=== PATIENT | male | born 1955 | race Caucasian/White ===

== ENCOUNTER → 2017-03-26 | Outpatient (CLI) | payer OTHER ==
[~2017-03-26] VITALS: Ht 185.4 cm; Wt 97.4 kg
[~2017-03-26] MED LIST: ACETAMINOPHEN325 M1 PO; ALLOPURINOL 30300 M1 PO; ALTACE5 M1 PO; ASPIRIN EC81 M1 PO; B-121000 MCG PO; CHLOROTHIAZIDE500 M2 PO; CYMBALTA30 MG PO; FISH OIL 1,0001 EAC5 PO; HYDROCODON-ACE1 EAC8 PO; INDAPAMIDE2.5 MG PO; MULTI VITAMIN1 EACH PO; NAPRELAN750 MG PO; PERCOCET PO; PRILOSEC 10MG C10 M1 PO; SAVELLA1 EACH PO; VITAMIN D1000 UNI1 PO; VYVANSE70 MG PO
--- NOTE | ~2017-03-26 | HPC ---
[facility] [address] [place] [address] PAIN MANAGEMENT CONSULTATION Name: JAIME DEL ROSARIO Room #: REG CLJuan Bubba#: [id number] Admission: 03/26/17 Attend Phys: Timbo Jenkins DO Discharge: Date of : 53 Report #: [id number] THIS REPORT FOR: //name// CC: Timbo Lara DATE OF SERVICE: 03/26/2017 CHIEF COMPLAINT: Low back pain, left lower extremity pain with paresthesias. HISTORY OF PRESENT ILLNESS: As you know, the patient is a very pleasant 61-year-old male who returns today in followup visit with low back pain, left lower extremity pain with paresthesias. The patient underwent EMG evaluation with Dr. Yaneth Hernandez at [facility] on 03/18/2017. That study revealed sensory peripheral neuropathy involving the lower extremities bilaterally and a chronic lumbar radiculopathy involving the left lower extremity. He was subsequently returned back to our clinic to discuss options for treatment. He returns today reporting pain score of around 5/10. States his pain is constant, aching, spasming, stabbing, numbness and tingling. Places current pain score at 5/10, daily average of 5/10, worst pain has been is 8/10. He indicates that pain is exacerbated with activities and movement, improves with medication, heat and cold compresses and epidural injections. He returns today in followup visit to discuss options for treatment to address both peripheral sensory neuropathy involving the lower extremities and lumbar radiculopathy involving left lower extremity. ALLERGIES: CONTRAST AGENT. CURRENT MEDICATIONS: Percocet 5/325 one tab every 6 hours p.r.n. for pain, Savella 50 mg p.o. at bedtime, Tylenol regular strength 325 mg once a day, omega-3 fish oil 1 tab per day, calcium carbonate 1 tab per day, cholecalciferol 1000 units per day, aspirin 81 mg per day, cyanocobalamin 1000 mcg per day, omeprazole 10 mg per day, vitamin A 70 mg per day, indapamide 2.5 mg once a day, chlorothiazide 500 mg once a day, allopurinol 300 mg once a day, naproxen 750 mg once a day, Cymbalta 30 mg once a day, ramipril 5 mg per day. SOCIAL HISTORY: The patient denies tobacco, alcohol, IV or illicit drug use. He is working, not receiving workmen's compensation, unaccompanied today. IMAGING: Unavailable. PHYSICAL EXAMINATION: VITAL SIGNS: Blood pressure 142/84, pulse is 111, respiratory rate 20, unlabored. The patient is 100% on room air, height 6 feet 1 inch tall, weight 214.8 pounds, BMI calculated 28.3. GENERAL: Well-developed, well-nourished, well-hydrated 61[place] [address] PAIN MANAGEMENT CONSULTATION Name: JAIME DEL ROSARIO BUCKLAND Room #: REG CLI M.R.#: [id number] Admission: 03/26/17 Attend Phys: Timbo Jenkins DO Discharge: Date of : 53 Report #: [id number] appearing his stated age, placing current pain score around 5/10. HEENT: Normocephalic, atraumatic. Pupils equal, round, reactive to light. Extraocular muscles are intact. Sclerae nonicteric without injection. NEUROLOGIC: Cranial nerves 2-12 grossly intact. Speech is fluent. The patient deemed a good historian. LUNGS: Clear, no wheeze, rhonchi or rales. CARDIOVASCULAR: Regular. No appreciable gallop or rub. ABDOMEN: Soft, nontender, nondistended. EXTREMITIES: Show no clubbing, no cyanosis, no edema. MUSCULOSKELETAL: Lower extremity strength appears equal and symmetrical 5/5, muscle bulk and tone equal and symmetrical. Seated straight leg raising negative. Supine straight leg raising positive left at approximately 45 degree angle. Ankle clonus negative. Babinski is negative. Lumbar provocation causes increase in axial back pain, no radiation of symptoms. Well-healed surgical scar in the lumbar region. Gait is mildly antalgic favoring left lower extremity over right. ASSESSMENT: 1. Symptomatic lumbar radiculopathy. 2. Displacement of lumbar intervertebral disk with radiculopathy. 3. Lumbosacral spondylosis with radiculopathy. 4. Chronic intractable pain. PLAN: 1. The patient has returned today in followup visit where we have reviewed in its entirety the EMG obtained from Dr. Yaneth Hernandez on 03/18/2017. The findings on the EMG do show bilateral peripheral neuropathy involving the lower extremities, but also a chronic lumbar radiculopathy involving the L5 nerve root. We have discussed with the patient the findings from the EMG and have correlated to his MRI. Unfortunately, the symptoms the patient has been experiencing has progressed. He is now placing pain score 5/10. We discussed with the patient options for treatment. These would include reinitiating physical therapy for which the patient has been involved in 2 different physical therapy sessions with some improvement in symptoms, but only transiently. We discussed medication management with addition of a neuropathic pain medication. He has failed neuropathic pain medications in the past secondary to somnolence, decrease in mental acuity and disorientation. He does not wish to initiate these medications again as he noted no good efficacy. We discussed epidural injections for which he does receive transient improvement in symptoms, but no long-term efficacy. We also discussed the spinal cord stimulator technology and surgical options. After reviewing risks and benefits of all proposed treatment options and given the fact that medications and epidurals have provided only transient improvement in symptoms, he has requested to move forward with a spinal cord stimulator trial. The patient has completed his psychiatric evaluation in preparation for possible [address] [address] PAIN MANAGEMENT CONSULTATION Name: JAIME DEL ROSARIO Room #: REG CLI Bubba#: [id number] Admission: 03/26/17 Attend Phys: Timbo Jenkins DO Discharge: Date of : 53 Report #: [id number] trial implantation. He saw Dr. Terese Paulino who reviewed the patient's case and determined he was a candidate for a spinal cord stimulator. There was no psychopathology that would preclude him from moving forward with such a device. We have received her paperwork today, which indicates that he would be an excellent candidate to move forward with spinal cord stimulator trial and possible implantation. 2. The patient was advised that third green party payer restrictions require that authorization be obtained before we can move forward with a spinal cord stimulator trial, begin the process immediately. Once we have this authorization, we will contact the patient directly and schedule a time that is usually convenient for himself and for our services to provide a spinal cord stimulator trial implant. Once we have achieved this authorization, we will contact the patient to begin the scheduling process. We are hopeful that we can move forward quickly as the patient has been experiencing increasing pain and we are hopeful this will provide improvement to reduce his 5/10 left lower extremity pain and bilateral neuropathies. 3. The patient was provided a prescription of Percocet 5/325s one tab every 6 hours p.r.n. for pain, I have given the patient #120. Advised the patient to take the medication only when pain is intolerable, not to rely on the medication prophylactically. 4. We will see the patient back in followup visit once we have achieved authorization to move forward with a spinal cord stimulator trial implantation to address chronic lumbar radicular pain involving the left lower extremity L5 distribution. <ELECTRONICALLY SIGNED> By: Timbo Jenkins DO 03/27/17 1216 1419 1939 Timbo Jenkins DO /nt
[2017-03-26 12:51] VITALS: BP 142/84
== END ==
LOC: PAIN 06:48
DX: M51.16 Intervertebral disc disorders with radiculopathy, lumbar region (principal); M47.27 Other spondylosis with radiculopathy, lumbosacral region; G89.29 Other chronic pain

== ENCOUNTER → 2017-05-08 | Outpatient (CLI) | payer OTHER ==
[~2017-05-08] VITALS: Ht 185.4 cm; Wt 98.0 kg
--- NOTE | ~2017-05-08 | HPC ---
[facility] [address] [place] [address] PAIN MANAGEMENT CONSULTATION Name: JAIME DEL RSOARIO Room #: REG CLJuan Norris.#: [id number] Admission: 05/08/17 Attend Phys: Timbo Jenkins DO Discharge: Date of : 53 Report #: [id number] THIS REPORT FOR: //name// CC: Timbo Lara DATE OF SERVICE: 05/08/2017 CHIEF COMPLAINT: Low back pain, bilateral lower extremity pain and paresthesias. HISTORY OF PRESENT ILLNESS: As you know, the patient is a very pleasant 61-year-old male who returns today in followup visit with chronic low back pain, bilateral lower extremity pain and bilateral foot pain secondary to peripheral neuropathy. The patient indicates pain around the level of 8-9/10 today. The patient indicates pain is exacerbated with movement and standing, improves with medications, heat and cold compresses and TENS unit. He returns today in followup visit having received precertification to undergo a spinal cord stimulator trial implantation to determine if this device would be effective at treating symptoms. He denies injury or trauma that may have led to symptom development. ALLERGIES: CONTRAST AGENT. CURRENT MEDICATIONS: Percocet 5/325 one tab every 6 hours p.r.n. for pain, Savella 50 mg p.o. at bedtime, Tylenol regular strength 325 mg p.r.n., omega-3 fish oil 1 tab per day, cholecalciferol 1000 units per day, aspirin 81 mg per day, multivitamin 1 tab per day, vitamin B12 1000 mcg per day, omeprazole 10 mg per day, Vyvanse 70 mg per day, indapamide 2.5 mg once a day, chlorothiazide 500 mg once a day, allopurinol 300 mg per day, naproxen 750 mg twice a day, duloxetine 30 mg per day and ramipril 5 mg per day. SOCIAL HISTORY: The patient denies tobacco, alcohol, IV or illicit drug use. He is working, not receiving workmen's compensation. He is accompanied by his who is present in room today. IMAGING DATA: No new imaging available. PHYSICAL EXAMINATION: VITAL SIGNS: Blood pressure 140/90, pulse is 112, respiratory rate 16 and unlabored. The patient is 100% on room air, height 6 feet 1 inch tall, weight 216 pounds and BMI calculated 28.5. GENERAL: Well-developed, well-nourished and well-hydrated 61-year-old male appearing stated age and he is placing current pain score 8-9/10. HEENT: Normocephalic and atraumatic. Pupils equal, round and reactive to light. [address] [address] PAIN MANAGEMENT CONSULTATION Name: JAIME DEL ROSARIO BROCKTON Room #: REG CLJuan M.R.#: [id number] Admission: 05/08/17 Attend Phys: Timbo Jenkins DO Discharge: Date of : 53 Report #: [id number] EXTREMITIES: Show no clubbing, no cyanosis and no edema. MUSCULOSKELETAL: Seated straight leg raising negative. Supine straight leg raising positive on the left. Ghassan's test negative. Modified Gaenslen's positive for axial low back pain. Ankle clonus negative. Babinski is negative. Gait is antalgic favoring left lower extremity over right. ASSESSMENT: 1. Symptomatic lumbar radiculopathy. 2. Displacement of lumbar intervertebral disk with radiculopathy. 3. Lumbosacral spondylosis with radiculopathy. 4. Lumbar degeneration. 5. Chronic intractable pain. PLAN: 1. The patient returns today in followup visit having received precertification to undergo spinal cord stimulator trial implantation. The patient has been advised of the risks and the benefits of this procedure. These risks include but not necessarily limited to bleeding, bruising, infection, worsening pain, no relief of pain, also risk of temporary or permanent muscle weakness, temporary or permanent nerve damage, possible paralysis and . The patient states understood and wished to proceed. 2. No medication changes were made at today's visit. The patient will continue current medical therapy as previously prescribed. We have requested the patient utilize his oxycodone only as necessary. If he does not need to take the medication, he is not to do so during the trial period. 3. We will see the patient back in followup visit in 1 week for explantation of device. At that time, we will discuss the efficacy of the device itself and determine if permanent implant would be warranted. PROCEDURE NOTE DESCRIPTION OF PROCEDURE: Two-lead spinal cord stimulator trial implantation with fluoroscopy. After obtaining written consent, a 22-gauge IV Hep-Lock was placed in the patient's right upper extremity. The patient was given IV prophylactic antibiotic infused over 30 minutes prior to procedure. The patient was then taken to the fluoroscopy suite, placed in prone position with 2 pillows under abdomen to decrease the lumbar lordosis. Cardiopulmonary monitoring was established and the patient's vital signs were monitored throughout the procedure. The patient's thoracolumbar spine was then prepped and draped in aseptic fashion using chlorhexidine and draped in a sterile fashion. The patient was given no IV sedation prior to the procedure. AP fluoroscopic imaging was obtained to identify and scar the midline positions of the T10 through L2 spinous processes. Skin was anesthetized with 1% [address] [address] PAIN MANAGEMENT CONSULTATION Name: JAIME DEL ROSARIO Room #: REG [facility]#: [id number] Admission: 05/08/17 Attend Phys: Timbo Jenkins DO Discharge: Date of : 53 Report #: [id number] lidocaine preservative free, total of 8 mL provided on the right and 8 mL provided on the left. This was done prior to the introduction of the 14-gauge 4-inch Tuohy needles. Skin entry site on the right was at approximately the level of the inferior portion of the L1 vertebral body. Needle was advanced using a paramedian approach to the right of midline approximately 45-degree angle. Loss of resistance air was utilized to verify placement within the epidural space. Epidural space entered at the T12-L1 interspace. Lateral fluoroscopic view was obtained to confirm position of the tip of the Tuohy needle within the epidural space. Aspiration noted to be negative for heme or cerebrospinal fluid. The patient did not complain of pain or paresthesias during needle placement. The spinal cord stimulating lead was then advanced through the Tuohy needle under direct visualization to the midline. Tip of the stimulating lead was then aligned with the inferior endplate of T8 located midline. The patient did not report any pain or paresthesias with placement of the lead. The position of the lead was confirmed both in AP and lateral fluoroscopic imaging. A second lead was then advanced on the left side. Needle was advanced using a paramedian approach on the left of the L1 vertebral body advancing towards the T12-L1 interspace. Epidural space was entered at the T12 interspace. Lateral fluoroscopic view was obtained to confirm the position of the Tuohy needle within the epidural space. Aspiration noted to be negative for heme or cerebrospinal fluid. The patient did not complain of pain or paresthesias with needle placement. Spinal cord stimulating lead was then advanced through the Tuohy needle under direct visualization within the midline. Tip of the stimulating lead was aligned with the superior endplate of T9 vertebral body located approximately within the midline. Final position of the zero electrode was noted to be in correct position. Imaging was obtained during the advancing process both in AP and lateral imaging to confirm position. The stylette was then removed from the two leads as well as the Tuohy needles. This was done under direct visualization to confirm the position of the leads was unchanged. The stimulating leads were then anchored to the patient's back with benzoin, Steri-Strips and OpSite bandaging. The patient tolerated procedure well, carefully escorted to the recovery room in stable condition. No apparent complications. The patient was advised if he begins to experience any concern of infection, increased bleeding, discharge at the insertion sites, fever, night sweats, chills of any kind, increasing neck or back pain, he is to contact the on-call pain physician. He was given a 24-hour phone number to contact that physician. If he is having difficulty with pattern of capture for his typical pain, he is to contact the Nevro device [address] [address] PAIN MANAGEMENT CONSULTATION Name: MIGUEL ÁNGELJAIME ARRIOLA Room #: REG MICHAEL Mac#: [id number] Admission: 05/08/17 Attend Phys: Timbo Jenkins DO Discharge: Date of : 53 Report #: [id number] customer service representative teacher and he was given phone numbers for that individual as well. We will see the patient back in followup visit in 1 week to determine efficacy. <ELECTRONICALLY SIGNED> By: Timbo Jenkins DO 05/15/17 1130 [id number] [id number] Timbo Jenkins DO /nt
[2017-05-08 07:09] VITALS: BP 140/90
== END | disposition home or self-care (01) ==
LOC: PAIN 05-07 12:55
DX: M51.16 Intervertebral disc disorders with radiculopathy, lumbar region (principal); M47.27 Other spondylosis with radiculopathy, lumbosacral region; G89.29 Other chronic pain; F17.210 Nicotine dependence, cigarettes, uncomplicated; Z91.041 Radiographic dye allergy status; Z79.899 Other long term (current) drug therapy; Z79.82 Long term (current) use of aspirin; Z79.891 Long term (current) use of opiate analgesic; Z98.890 Other specified postprocedural states

== ENCOUNTER → 2017-05-14 | Outpatient (CLI) | payer OTHER ==
--- NOTE | ~2017-05-14 | HPC ---
[facility] [address] [place] [address] PAIN MANAGEMENT CONSULTATION Name: JAIME DEL ROSARIO Room #: REG CLI MMichael.#: [id number] Admission: 05/14/17 Attend Phys: Timbo Jenkins DO Discharge: Date of : 53 Report #: [id number] THIS REPORT FOR: //name// CC: Timbo Lara DATE OF SERVICE: 05/14/2017 CHIEF COMPLAINT: Low back pain, bilateral lower extremity pain and paresthesias. HISTORY OF PRESENT ILLNESS: As you know, the patient is a very pleasant 61-year-old male who returns today in followup visit having undergone spinal cord stimulator trial implantation over the past week. The patient returns today with an 80% improvement in overall pain. He is now placing pain score no greater than 2/10, states his pain is exacerbated with arising in the morning, movement and standing; improves with medications, heat, cold compresses, TENS unit and the spinal cord stimulating trial. The patient feels very excited about moving forward with permanent implant as he has seen excellent improvement in his daily activities. ALLERGIES: IV CONTRAST AGENT. CURRENT MEDICATIONS: Percocet, Savella, Tylenol, omega 3 fish oil, cholecalciferol, aspirin, multivitamin, vitamin B12, omeprazole, Vyvanse, indapamide, chlorothiazide, allopurinol, naproxen, duloxetine, ramipril. SOCIAL HISTORY: The patient denies tobacco, alcohol, IV or illicit drug use. He is working, not receiving workmen's compensation, unaccompanied today. IMAGING: No new imaging available. PQRS: The patient does have a history of osteoarthritis, no rheumatoid arthritis. He is not a fall risk, has had no falls in the last 3 months. He is not on any blood thinners. He does have a history of hypertension, for which he is treated medically. He is on opioids. He has been on opioids for greater than 6 months. He does have an opioid contract with [facility] at our [facility] office. Risk assessment tool is low. Functional assessment 32/70, indicating moderate interference of daily activities secondary to pain. PHYSICAL EXAMINATION: VITAL SIGNS: Blood pressure 144/87, pulse is 98, respiratory rate 16, unlabored, the patient 99% on room air. GENERAL: Well-developed, well-nourished, well-hydrated, 61-year-old male. He appears his stated age. He is placing current pain score at 2/10. HEENT: Normocephalic, atraumatic. Pupils equal, round, reactive to light. [facility] [address] [place] [address] PAIN MANAGEMENT CONSULTATION Name: JAIME DEL ROSARIO Room #: REG [facility] Debbie.Jody.#: [id number] Admission: 05/14/17 Attend Phys: Timbo Jenkins DO Discharge: Date of : 53 Report #: [id number] Extraocular muscles are intact. EXTREMITIES: Show no clubbing, no cyanosis, no edema. MUSCULOSKELETAL: Seated straight leg raising negative. Supine straight leg raising positive on the left. Ghassan test negative. ASSESSMENT: 1. Symptomatic lumbar radiculopathy. 2. Displacement of a lumbar intervertebral disk with radiculopathy. 3. Lumbosacral spondylosis with radiculopathy. 4. Lumbar degeneration. 5. Chronic intractable pain. PLAN: 1. The patient returns today in followup visit and having successfully completed spinal cord stimulator trial implantation with the Nevro device. The patient has done very well with this device, noticing greater than 80% improvement in overall pain. The patient was able to return to the majority of his activities of daily living without significant pain interference. We did limit his high activity levels just due to potential of displacement of the device, but he was able to go about all other activities of daily living without any pain interference. He had some pain in the morning hours, lasting for about 4-5 minutes as he got up, this is likely osteoarthritic. He is excited to move forward with permanent implant. 2. The patient was advised that third libertarian payer restrictions require that authorization be obtained before he could move forward with a permanent device. We will begin the process of having the patient seen by neurosurgery for permanent implant of a Nevro device with paddle lead. 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 We recommend the paddle lead in this patient's case 3. The patient was provided new prescription of Percocet 5/325 one tab every 6 hours p.r.n. for pain, I have given this for pain control as we await the permanent implant. I have given the patient now for one month, #120, no refills. 4. We will see the patient back in followup visit on an as-needed basis. We wish him luck with the permanent spinal cord stimulator implantation. We will be transferring his information to neurosurgery of [facility] are recommended implanters of this device. We will have him seen as quickly as possible for the evaluation and for planning of the permanent implant with paddle lead. <ELECTRONICALLY SIGNED> By: Timbo Jenkins DO 05/15/17 1131 1256 1421 Timbo Jenkins DO /nt
[2017-05-14 08:12] VITALS: BP 144/87
== END ==
LOC: PAIN 06:42
DX: M51.16 Intervertebral disc disorders with radiculopathy, lumbar region (principal); M47.27 Other spondylosis with radiculopathy, lumbosacral region; G89.29 Other chronic pain; M79.605 Pain in left leg

== ENCOUNTER → 2020-05-31 | Outpatient (CLI) | payer OTHER, MEDICARE ==
[~2020-05-31] VITALS: Ht 182.9 cm; Wt 107.0 kg
[~2020-05-31] MED LIST changes: +ADDERALL XR 3030 MG PO; +AMLODIPINE BESY10 MG PO; +HYDROCHLOROTHIA25 M2 PO; +OMEPRAZOLE40 MG PO; +PROBIOTIC1 EAC7 PO; +RAMIPRIL10 MG PO
[2020-05-31 09:58] VITALS: BP 136/89
--- NOTE | 2020-05-31 10:17 | NUR ---
Pain Clinic Assessment: 1. History of Osteoarthritis: fingers neck knees History of Rheumatoid Arthritis: Not Applicable 2. Height: 6 ft. 0 in. 182.9 cm. Weight: 236.0 lb. oz. 107.049 kg. Patient's BMI: 32.0 3. Vital Signs: BP: 136/89 Pulse: 89 Resp: 16 Temp: 02 Sat: 100 ECG Mon: 4. Pain Intensity: 6 5. Fall Risk: Dizziness: N Needs help standing or walking: N Fallen in the last 3 months: N Fall risk comments: 6. Patient on Blood Thinner: None 7. History of Hypertension: Y 8. Opioid Therapy greater than 6 weeks: Y Opiate Contract Signed: 9. Risk Assessment Tool Provided: 2 low 10. Functional Assessment Tool: 11. Recreational Drug Use: Never Drug Type: Tobacco Use: Former Smoker Tobacco Type: Amount or Packs/day: How Many Years: Alcohol Use: Yes Frequency: Daily Quant: 1
--- NOTE | 2020-06-01 11:53 | HPC ---
[facility] [place] [address] PAIN MANAGEMENT CONSULTATION Name: JAIME DEL ROSARIO Room #: REG CLJuan Jr.#: [id number] Admission: 05/31/20 Attend Phys: Timbo Jenkins DO Discharge: Date of : 53 Report #: [id number] THIS REPORT FOR: cc: Ervin Lara MD,Ervin Jenkins,Timbo Dahl DO ~ DATE OF SERVICE: 05/31/2020 REFERRING PHYSICIAN: Ervin Lara MD CHIEF COMPLAINT: Bilateral foot pain. HISTORY OF PRESENT ILLNESS: As you know, the patient is a very pleasant 64-year-old male who has been followed by [facility] for an extended period of time, addressing lumbar radicular symptoms secondary to displacement of intervertebral disks at the L3-L4 and to a lesser degree at the L4-L5 level. He ultimately underwent spinal cord stimulator implantation, which provides good benefit from the back standpoint, but has not provided much in the way of improvement in his bilateral feet. He has sought treatment through physical therapy, medication management, and also has been seen by a local technical applications scientist, all of which have advised the patient they are not able to improve his symptoms. He continues to experience pain in the bilateral feet and some changes in skin color with positioning that is concerning for vascular issues. We have adjusted his spinal cord stimulator in the past to try to address his bilateral foot pain without much success. He returns today to discuss his concerns about vascular insufficiency of the lower extremities. The patient place his current pain score a 6/10. States the pain he is experiencing in the bilateral feet is constant, burning, aching, stinging, cramping, cold sensation and numbness with skin color changes. He states that nothing tends to exacerbate symptoms that he is aware of other than standing for a long period of time or sitting for long periods of time. Otherwise, no improvement in symptoms are noted with medications. He has been referred back to discuss bilateral foot pain. ALLERGIES: IV CONTRAST AGENT. CURRENT MEDICATIONS: Probiotic 1 tab per day, omeprazole 40 mg per day, Adderall XR 30 mg once a day, amlodipine 10 mg once a day, ramipril 10 mg once a day, hydrochlorothiazide 25 mg once a day, Tylenol Extra Strength 325 mg once a day, omega-3 fish oil 1 tab per day, cholecalciferol 1000 units once a day, aspirin 81 mg per day, multivitamin 1 tab per day, indapamide 2.5 mg once a day, allopurinol 300 mg once a day. SOCIAL HISTORY: The patient denies tobacco, alcohol, IV or illicit drug use. He is retired, unaccompanied today. IMAGING: [place] [address] PAIN MANAGEMENT CONSULTATION Name: JAIME DEL ROSARIO Room #: REG CLJuan Mac#: [id number] Admission: 05/31/20 Attend Phys: Timbo Jenkins DO Discharge: Date of : 53 Report #: [id number] PQRS: The patient has known arthritic changes of the cervical spine, bilateral shoulders, bilateral hands, bilateral hips; bilateral knees, status post total knee arthroplasty and bilateral ankles. No rheumatoid arthritis. He is placing his current pain score at 6/10. He is not a fall risk, has not had a fall in last 3 months. He is not on blood thinners, but is treated for hypertension. He is not on any chronic opioids, has a low opiate addiction potential. Pain impact is 36/70, moderate interference of daily activities secondary to pain. PHYSICAL EXAMINATION: VITAL SIGNS: Blood pressure 136/89, pulse 89, respiratory rate 16 and unlabored. The patient is 100% on room air, height 6 feet tall, weight 236 pounds, BMI calculated 32.0. GENERAL: Well-developed, well-nourished, well-hydrated 64-year-old male appearing stated age, pain is rated today at around 6/10. HEENT: Normocephalic, atraumatic. Pupils equal, round, and responsive. The patient is wearing a mask in compliance with COVID-19 regulations. EXTREMITIES: Show no clubbing, no cyanosis, and no appreciable edema. MUSCULOSKELETAL: Lower extremity strength appears symmetrical 5/5. He appears to be intact to light touch from L1 through L5 dermatomes. It does appear to be a loss of some sensation to tactile on the plantar surfaces of the feet. Pinprick appears slightly diminished as well. Seated straight leg raising negative. Supine straight leg raising provides no change in overall symptoms. Standing from a seated position does tend to exacerbate bilateral foot pain. There is noted skin color changes in the distal portion of the feet. ASSESSMENT: 1. Bilateral foot pain. 2. Chronic lumbar radiculopathy. PLAN: 1. The patient has returned to our clinic today having been evaluated by Podiatry, Orthopedic Surgery and his primary care physician, all of which have been unable to determine the source of the patient's bilateral foot pain. It was initially believed that his symptoms are related to lumbar radiculopathy, though epidural injections and spinal cord stimulator as well as surgical options have not improved his symptoms. He continues to utilize a spinal cord stimulator without much efficacy in regard to bilateral feet. I am concerned based on his physical exam today that he might be experiencing some vascular insufficiency, which may be contributing to his symptoms. I recommend further evaluation in this area. This has not been provided by any other physicians to date, but he does discuss findings that occur in the evening hours that are concerning for vascular changes and further evaluation I would recommend. We have also contacted the patient's device footwear sales representative to meet with the patient on an outpatient appointment to adjust his spinal cord stimulator to address specifically his bilateral feet with paresthesia-like sensation so that the [facility] [address] [place] [address] PAIN MANAGEMENT CONSULTATION Name: JAIME DEL ROSARIO Room #: REG CLI Bubba#: [id number] Admission: 05/31/20 Attend Phys: Timbo Jenkins DO Discharge: Date of : 53 Report #: [id number] patient can determine he is getting coverage over his bilateral feet and determine if the symptoms will improve. 2. We have taken the liberty of contacting the patient's device footwear sales representative at [employer] spinal cord stimul[employer] to make adjustments in the device. They are going to contact the patient directly and make an appointment. The patient will keep me apprised of his response to the adjustments in therapy. We are hopeful the patient will see good benefit with this treatment course. 3. I have sent the patient for MISSY evaluation. I do wish to have a vascular study completed to determine whether or not he has some form of vascular insufficiency, which is leading to bilateral foot pain. The patient will undergo the ankle-brachial index testing and we will be monitoring for those results. 4. We made no changes in the patient's medication management. At this time, we will continue current medical therapy as prior prescribed. 5. We will see the patient back in followup visit to review the MISSY testing and to determine whether or not the Nevro adjustments in the spinal cord stimulators have been beneficial. <ELECTRONICALLY SIGNED> By: Timbo Jenkins DO 06/01/20 1153 [id number] Timbo Jenkins DO /nt
== END ==
LOC: PAIN 06:51
PROVIDERS: ATTEND Anesthesiology Pain Medicine
DX: M79.672 Pain in left foot (principal); M79.671 Pain in right foot; G89.29 Other chronic pain; M54.16 Radiculopathy, lumbar region

== ENCOUNTER → 2020-06-14 | Outpatient (CLI) | payer OTHER, MEDICARE ==
[~2020-06-14] VITALS: Ht 182.9 cm; Wt 105.8 kg
[~2020-06-14] MED LIST changes: +ADVIL200 M1 PO; +NEURONTIN 300M300 M2 PO
[2020-06-14 09:38] VITALS: BP 131/84
--- NOTE | 2020-06-14 09:57 | NUR ---
Pain Clinic Assessment: 1. History of Osteoarthritis: fingers neck knees History of Rheumatoid Arthritis: Not Applicable 2. Height: 6 ft. 0 in. 182.9 cm. Weight: 233.2 lb. oz. 105.779 kg. Patient's BMI: 31.6 3. Vital Signs: BP: 131/84 Pulse: 103 Resp: 16 Temp: 02 Sat: 100 ECG Mon: 4. Pain Intensity: 7 5. Fall Risk: Dizziness: N Needs help standing or walking: N Fallen in the last 3 months: N Fall risk comments: 6. Patient on Blood Thinner: None 7. History of Hypertension: Y 8. Opioid Therapy greater than 6 weeks: Y Opiate Contract Signed: 9. Risk Assessment Tool Provided: 2 low 10. Functional Assessment Tool: 11. Recreational Drug Use: Never Drug Type: Tobacco Use: Former Smoker Tobacco Type: Amount or Packs/day: How Many Years: Alcohol Use: Yes Frequency: Special Occasions Quant: 1
--- NOTE | 2020-06-15 10:35 | HPC ---
[facility] [place] [address] PAIN MANAGEMENT CONSULTATION Name: JAIME DEL ROSARIO Room #: REG CLJuan Bubba#: [id number] Admission: 06/14/20 Attend Phys: Timbo Jenkins DO Discharge: Date of : 53 Report #: [id number] THIS REPORT FOR: cc: Ervin aLra MD, Matthew MD Johnson, James E. DO ~ DATE OF SERVICE: 06/14/2020 REFERRING PHYSICIAN: CHIEF COMPLAINT: Bilateral foot pain. HISTORY OF PRESENT ILLNESS: As you know, the patient is a pleasant 64-year-old male with longstanding history of bilateral foot paresthesias. The patient has been evaluated by pain management, undergoing treatment to address lumbar radiculopathy, which was believed to be potentially contributing to his bilateral foot pain. He underwent a spinal cord stimulator, but did not notice much in the way of improvement in symptoms. He was subsequently then referred on to Podiatry who evaluated the patient and determined his symptoms were not podiatric related. He recently underwent an evaluation with Doppler studies of the bilateral lower extremity as there was concern his symptoms may be related to peripheral vascular disease leading to peripheral neuropathy. This has been ruled out with the recent Doppler testing, which showed normal blood flow. This brings the patient back to our clinic to discuss treatment options for peripheral neuropathy of unknown origin. The patient is placing his pain anywhere up to 7/10. He denies injury or trauma that may have led to symptom development. ALLERGIES: IV CONTRAST AGENT. CURRENT MEDICATIONS: Probiotic, omeprazole, Adderall XR amlodipine, ramipril, hydrochlorothiazide, Tylenol Extra Strength, omega-3 fish oil, cholecalciferol, aspirin, multivitamins, indapamide, allopurinol. SOCIAL HISTORY: The patient denies tobacco, alcohol, IV or illicit drug use. He is retired, retired about a year ago; unaccompanied today. IMAGING: No new imaging available. PQRS: The patient has known arthritic changes of the cervical spine, bilateral shoulders, bilateral hands, bilateral hips, bilateral knees, status post total knee arthroplasty and bilateral ankles. No rheumatoid arthritis. He is placing current pain score 7/10, not a fall risk, has not had a fall in last 3 months. He is not on blood thinners, but is treated for hypertension. He is on chronic opioids and has a low opioid addiction potential. Pain impact is 36/70, moderate interference of daily activities secondary to pain. [facility] [address] [place] [address] PAIN MANAGEMENT CONSULTATION Name: JAIME DEL ROSARIO Room #: REG CLI Bubba#: [id number] Admission: 06/14/20 Attend Phys: Timbo Jenkins DO Discharge: Date of : 53 Report #: [id number] PHYSICAL EXAMINATION: VITAL SIGNS: Blood pressure 131/84, pulse is 103, respiratory rate 16 and unlabored. The patient is 100% on room air. Height 6 feet tall, weight 233.2 pounds, BMI calculated 31.6. GENERAL: Well-developed, well-nourished, well-hydrated 64-year-old male, appearing stated age, pain is rated today at 7/10. HEENT: Normocephalic, atraumatic. Pupils equal, round, and responsive. The patient is wearing a mask in compliance with COVID-19 regulations. EXTREMITIES: Show no clubbing, no cyanosis. No appreciable edema. MUSCULOSKELETAL: Lower extremity strength remains symmetrical 5/5. Intact to light touch from L1 through S2 dermatomes. There was loss of sensation to light touch in the plantar surfaces. Seated straight leg raising negative. Supine straight leg raising negative. ASSESSMENT: 1. Bilateral foot pain. 2. Peripheral neuropathy of unknown origin. 3. Chronic lumbar radiculopathy. PLAN: 1. The patient returns today in followup visit with continued bilateral foot pain. States the symptoms tend to awaken him at night, but are present throughout the day. He originally sought evaluation through neurosurgery, who referred the patient to our clinic undergoing a spinal cord stimulator and ultimately undergoing a permanent implantation to address lumbar radicular pain. The patient was left with bilateral foot pain. He sought evaluation through multiple physicians including Podiatry who have advised the patient there is no known etiology for his symptoms. This would appear to be an idiopathic problem. The patient was sent for evaluation of the vascular system of the lower extremities, which I am pleased to say is a completely normal. This leaves us with peripheral neuropathy of unknown origin. We made some adjustments in the spinal cord stimulator, but have not noted much in the way of improvement in the bilateral feet. This is unfortunate as he is getting good benefit from the lumbar radicular standpoint, but certainly not assistance in the bilateral foot pain. He returns today to discuss potential adjustments in medication management. 2. The patient and I discussed the possibility of starting a neuropathic medication. He suffers from issues with dry mouth at present, which would preclude the use of amitriptyline or nortriptyline as these can cause severe drying of the mild secretions and given the fact that he already has problems with this issue, we would recommend avoiding these 2 medications. The patient had been on Lyrica in the past and apparently gained some weight with it and does not wish to initiate that therapy. This leaves us with duloxetine or gabapentin. We chose to work with gabapentin as a treatment option. He is amenable to trial medication. He is to watch for side effects. [facility] [address] [place] [address] PAIN MANAGEMENT CONSULTATION Name: JAIME DEL ROSARIO Room #: REG CLI M.#: [id number] Admission: 06/14/20 Attend Phys: Timbo Jenkins DO Discharge: Date of : 53 Report #: [id number] 3. The patient was provided prescription of gabapentin 300 mg dose. He will start 1 tab p.o. at bedtime for 3 nights, then increase to 2 tabs p.o. at bedtime, then 3 tabs p.o. at bedtime. If no improvement in symptoms, no side effects of sleepiness, disorientation, confusion, mental slowing, he is then to begin taking 1 tab in the morning and 3 tabs at night, escalating every 3 days to reach 3 tabs in morning and 3 tabs at night. If again no improvement in symptoms, no side effects, then continue to increase the dose, now in the noontime taking 900 mg morning, 300 mg at noon and 900 mg at night, continuing to escalate until reaching 900 t.i.d. if necessary. The patient was advised anytime during the titration if he notes improvement in symptoms, stabilize at that dose, no further escalation in treatment. If no improvement in symptoms, no side effects, continue the titration as directed. He was given #270, tablets sent to his local pharmacy. 4. We will see the patient back in followup visit to discuss efficacy of the medication. He will keep us apprised of his response. <ELECTRONICALLY SIGNED> By: Timbo Jenkins DO 06/15/20 1035 [id number] Timbo Jenkins DO /nt
== END ==
LOC: PAIN 06:40
PROVIDERS: ATTEND Anesthesiology Pain Medicine
DX: M79.672 Pain in left foot (principal); M79.671 Pain in right foot; G62.9 Polyneuropathy, unspecified; M54.16 Radiculopathy, lumbar region